=== PATIENT | male | born 1985 | race Caucasian/White ===

== ENCOUNTER → 2025-03-23 | Outpatient (CLI) | payer MEDICARE | LOC: M SOG 06:53 | PROVIDERS: ATTEND Physician Assistant | DX: M25.511 Pain in right shoulder (principal); M25.512 Pain in left shoulder ==

== ENCOUNTER → 2025-03-24 | Outpatient (CLI) | payer OTHER | LOC: M SLEEP HO 11:15 | PROVIDERS: ATTEND Internal Medicine | DX: G47.33 Obstructive sleep apnea (adult) (pediatric) (principal); R06.83 Snoring ==

== ENCOUNTER 2025-06-07 08:12 | Day surgery (SDC) | payer OTHER ==
[~2025-06-07] VITALS: Ht 177.8 cm; Wt 124.8 kg
[~2025-06-07 08:12] MED LIST: AMPH1CAP16 PO; IBUP80TA PO
[2025-06-07] MEDS ORDERED: dexAMETHasone 4 MG/ML 1 ML VIAL As Ordered ONE (08:37)
[2025-06-07] MEDS ORDERED: ONDANSETRON 4MG/2ML VIAL As Ordered ONE (08:37)
[2025-06-07] MEDS ORDERED: KETOROLAC 30 MG/ML 1 ML VIAL As Ordered ONE (08:37)
[2025-06-07] MEDS ORDERED: LIDOCAINE 2% 100 MG/5 ML SDV (FOR ANES.) As Ordered ONE (08:37)
[2025-06-07] MEDS ORDERED: MIDAZOLAM INJ 2 MG/2 ML VIAL As Ordered ONE (08:39)
[2025-06-07] MEDS: LR 1,000 ML IV SCH (08:45)
[2025-06-07] MEDS ORDERED: ACETAMINOPHEN 1000MG/100ML IV BAG As Ordered ONE (08:52)
[2025-06-07] MEDS: ceFAZolin SOD 2 GM IV ONCE IV ONE (10:15)
[2025-06-07] MEDS ORDERED: SUCCINYLCHOLINE 100MG/5ML SYRINGE As Ordered ONE (10:35)
[2025-06-07] MEDS ORDERED: ROCURONIUM BROMIDE 50MG/5ML VIAL As Ordered ONE (10:35)
[2025-06-07] MEDS ORDERED: SUGAMMADEX SODIUM 500 MG/5 ML VIAL As Ordered ONE (10:35)
[2025-06-07] MEDS ORDERED: PHENYLephrine 500MCG 5ML (100MCG/ML) SYRINGE As Ordered ONE (10:38)
[2025-06-07] MEDS: LIDOCAINE W/EPINEPHrine 1% 20 ML VIAL As Ordered ONE (10:58)
[2025-06-07] MEDS ORDERED: ONDANSETRON 4MG/2ML VIAL IV PRN (11:20)
[2025-06-07] MEDS ORDERED: LR 1,000 ML IV SCH (11:20)
[2025-06-07] MEDS ORDERED: HYDROMORPHONE HCL 0.5 MG/0.5 ML SYRINGE IV PRN (11:20)
[2025-06-07] MEDS ORDERED: PERC5TAB12 PO (11:46)
[2025-06-07 12:23] VITALS: BP 133/80; TEMP 97.7; O2SAT 97
== END 2025-06-07 12:26 | disposition home or self-care (01) ==
LOC: M SDC 08:12
PROVIDERS: ATTEND Orthopaedic Surgery Hand Surgery
DX: G56.22 Lesion of ulnar nerve, left upper limb (principal); G56.02 Carpal tunnel syndrome, left upper limb; G47.30 Sleep apnea, unspecified; Z88.0 Allergy status to penicillin; F17.210 Nicotine dependence, cigarettes, uncomplicated; Z79.899 Other long term (current) drug therapy
CPT/HCPCS: 29848; 29999; 93005; J0131; J0330; J0665; J0688; J1100; J2250; J2371; J2405; J3010

== ENCOUNTER → 2025-07-05 | Outpatient (CLI) | payer OTHER ==
[~2025-07-05] MED LIST changes: +PERC5TAB12 PO
== END ==
LOC: M SOG 13:50
PROVIDERS: ATTEND Physician Assistant
DX: M25.532 Pain in left wrist (principal)